=== PATIENT | male | born 1945 | race Caucasian/White ===

== ENCOUNTER 2017-01-15 09:35 | Outpatient (CLI) | payer MEDICARE | END 2017-01-15 09:36 | disposition home or self-care (01) | DX: I10 Essential (primary) hypertension (principal); E78.5 Hyperlipidemia, unspecified; D50.9 Iron deficiency anemia, unspecified; Z12.5 Encounter for screening for malignant neoplasm of prostate | CPT/HCPCS: 36415; 80053; 80061; 85025; G0103 ==

== ENCOUNTER 2018-10-16 09:18 | Outpatient (CLI) | payer MEDICARE, OTHER ==
[2018-10-16 09:51] LABS: BASOPHILS # (AUTO) 0.1 10^3/uL (0.0-0.1); BASOPHILS % (AUTO) 2.1 %; EOSINOPHILS # (AUTO) 0.4 10^3/uL (0.0-0.7); EOSINOPHILS % (AUTO) 6.2 %; HGB - HEMOGLOBIN 13.2 g/dL (14.0-18.0); LYMPHOCYTES # (AUTO) 1.1 10^3/uL (1.5-3.5); LYMPHOCYTES % (AUTO) 15.7 %; MEAN CORPUSCULAR HEMOGLOBIN 25.1 pg (27.0-31.0); MEAN CORPUSCULAR HGB CONC 32.8 g/dL (32.0-36.0); MEAN CORPUSCULAR VOLUME 76.5 fL (80.0-94.0); MEAN PLATELET VOLUME 8.1 fL (7.4-11.4); MONOCYTES # (AUTO) 0.7 10^3/uL (0.0-1.0); MONOCYTES % (AUTO) 9.4 %; NEUTROPHILS # (AUTO) 4.8 10^3/uL (1.5-6.6); NEUTROPHILS % (AUTO) 66.6 %; PLT - PLATELET COUNT 245 10^3/uL (130-450); RED BLOOD COUNT 5.25 10^6/uL (4.70-6.10); RED CELL DISTRIBUTION WIDTH 17.1 % (12.0-15.0); WHITE BLOOD COUNT 7.2 x10^3/uL (4.8-10.8)
[2018-10-16 10:19] LABS: ALBUMIN/GLOBULIN RATIO 1.4 (1.0-2.2); ALKALINE PHOSPHATASE 49 IU/L (42-121); ALT ALANINE AMINOTRANSFERASE 21 IU/L (10-60); AST ASPARTATE AMINOTRANSFERASE 27 IU/L (10-42); BILIRUBIN,TOTAL 0.6 mg/dL (0.2-1.0); BUN - BLOOD UREA NITROGEN 23 mg/dL (6-20); CARBON DIOXIDE - CO2 22 mmol/L (21-32); CHLORIDE 106 mmol/L (101-111); CHOL/HDL RATIO 5.4 (<5.0); CHOLESTEROL 200 mg/dL; CREATININE 1.6 mg/dL (0.6-1.2); GFR - MDRD 43 (>89); GLUCOSE 116 mg/dL (70-100); HDL CHOLESTEROL 37 mg/dL; LDL CHOLESTEROL,CALCULATED 140 mg/dL; LDL/HDL RATIO 3.8 (<3.6); SODIUM 138 mmol/L (135-145); TOTAL PROTEIN 6.9 g/dL (6.7-8.2); VLDL CHOLESTEROL 23 mg/dL
== END 2018-10-16 09:19 | disposition home or self-care (01) ==
LOC: LAB 09:18
PROVIDERS: ATTEND Family Medicine
DX: I10 Essential (primary) hypertension (principal); E78.5 Hyperlipidemia, unspecified; Z12.5 Encounter for screening for malignant neoplasm of prostate
CPT/HCPCS: 36415; 80053; 80061; 84443; 85025; G0103; 83721; 84153

== ENCOUNTER 2019-04-06 13:20 | Outpatient (CLI) | payer MEDICARE ==
[2019-04-06 19:55] LABS: BASOPHILS % (AUTO) 0.9 %; EOSINOPHILS # (AUTO) 0.3 10^3/uL (0.0-0.7); HGB - HEMOGLOBIN 13.1 g/dL (14.0-18.0); LYMPHOCYTES # (AUTO) 1.1 10^3/uL (1.5-3.5); LYMPHOCYTES % (AUTO) 19.9 %; MEAN CORPUSCULAR HEMOGLOBIN 24.9 pg (27.0-31.0); MEAN CORPUSCULAR HGB CONC 31.9 g/dL (32.0-36.0); MEAN CORPUSCULAR VOLUME 78.1 fL (80.0-94.0); MEAN PLATELET VOLUME 8.8 fL (7.4-11.4); MONOCYTES # (AUTO) 0.5 10^3/uL (0.0-1.0); MONOCYTES % (AUTO) 9.1 %; NEUTROPHILS # (AUTO) 3.5 10^3/uL (1.5-6.6); NEUTROPHILS % (AUTO) 65.1 %; PLT - PLATELET COUNT 222 10^3/uL (130-450); RED BLOOD COUNT 5.24 10^6/uL (4.70-6.10); RED CELL DISTRIBUTION WIDTH 17.6 % (12.0-15.0); WHITE BLOOD COUNT 5.3 x10^3/uL (4.8-10.8)
[2019-04-06 20:17] LABS: ALBUMIN 4.1 g/dL (3.2-5.5); ALBUMIN/GLOBULIN RATIO 1.4 (1.0-2.2); BILIRUBIN,TOTAL 0.7 mg/dL (0.2-1.0); CALCIUM 9.1 mg/dL (8.5-10.3); CREATININE 1.4 mg/dL (0.6-1.2)
== END 2019-04-06 13:21 | disposition home or self-care (01) ==
LOC: LAB.WCP 13:20
PROVIDERS: ATTEND Family Medicine
DX: I10 Essential (primary) hypertension (principal); E78.5 Hyperlipidemia, unspecified; D50.9 Iron deficiency anemia, unspecified
CPT/HCPCS: 36415; 80053; 82728; 83540; 84466; 85025

== ENCOUNTER 2019-12-18 13:23 | Outpatient (CLI) | payer MEDICARE ==
--- NOTE | 2019-12-18 15:45 | Ultrasound Report ---
Reason: SCROTAL MASS Procedure Date: 12/18/2019 Accession Number: [id number] / [id number] Procedure: US - Testicle CPT Code: Final Report FULL RESULT: EXAM: SCROTAL ULTRASOUND EXAM DATE: 12/18/2019 02:42 PM. CLINICAL HISTORY: Scrotal mass. COMPARISON: None. TECHNIQUE: Real-time scanning was performed with static images obtained. Color-flow images were utilized. FINDINGS: Right: Testis: 4.4 x 2.5 x 3.1 cm. Prominent dilation of rete testes with small intratesticular cysts. Epididymis: The epididymis has been replaced by tubular cystic conglomerate which contains debris, caliber up to 3.2 cm as visualized. Hydrocele: Yes. Varicocele: None. Left: Testis: 4.9 x 1.6 x 3.2 cm. A few tiny intratesticular cysts, otherwise normal parenchyma. Epididymis: Multicystic replacement of the epididymis, largest caliber at least 2.2 cm as seen, containing debris. Hydrocele: Yes. Varicocele: None. IMPRESSION: Bilateral cystic tubular dilation replacing the epididymides with internal low-level echoes suggestive of spermatocele with ectasia of rete testes on the right and bilateral surrounding hydrocele. Overall appearance favors tubular ectasia of the epididymis/spermatocele, cyst adenoma or cystadenocarcinoma of the rete testes would be less likely but not excluded as they are nonspecific on imaging. RADIA
== END 2019-12-18 13:24 | disposition home or self-care (01) ==
LOC: DI 13:23
PROVIDERS: ATTEND Urology
DX: N50.89 Other specified disorders of the male genital organs (principal); N44.2 Benign cyst of testis; N50.3 Cyst of epididymis; N43.3 Hydrocele, unspecified
CPT/HCPCS: 76870

== ENCOUNTER 2020-01-11 12:00 | Observation (INO) | payer MEDICARE ==
[2020-01-11 12:25] LABS: BASOPHILS # (AUTO) 0.1 10^3/uL (0.0-0.1); BASOPHILS % (AUTO) 1.2 %; EOSINOPHILS # (AUTO) 0.2 10^3/uL (0.0-0.7); EOSINOPHILS % (AUTO) 3.7 %; HGB - HEMOGLOBIN 13.4 g/dL (14.0-18.0); MEAN CORPUSCULAR HEMOGLOBIN 26.6 pg (27.0-31.0); MEAN CORPUSCULAR HGB CONC 30.8 g/dL (32.0-36.0); MEAN CORPUSCULAR VOLUME 86.3 fL (80.0-94.0); MEAN PLATELET VOLUME 10.7 fL (7.4-11.4); MONOCYTES # (AUTO) 0.6 10^3/uL (0.0-1.0); NEUTROPHILS # (AUTO) 3.8 10^3/uL (1.5-6.6); NEUTROPHILS % (AUTO) 66.9 %; PLT - PLATELET COUNT 209 10^3/uL (130-450); RED BLOOD COUNT 5.04 10^6/uL (4.70-6.10); RED CELL DISTRIBUTION WIDTH 15.9 % (12.0-15.0); WHITE BLOOD COUNT 5.7 x10^3/uL (4.8-10.8)
[2020-01-11 12:39] LABS: ALBUMIN/GLOBULIN RATIO 1.5 (1.0-2.2); BILIRUBIN,TOTAL 0.6 mg/dL (0.2-1.0); CALCIUM 9.2 mg/dL (8.5-10.3); CREATININE 1.4 mg/dL (0.6-1.2); TOTAL PROTEIN 6.7 g/dL (6.7-8.2)
--- NOTE | 2020-01-11 12:42 | XRAY Report ---
Reason: Chest pain Procedure Date: 01/11/2020 Accession Number: [id number] / [id number] Procedure: XR - Chest 1 View X-Ray CPT Code: 57454 Final Report FULL RESULT: EXAM: CHEST RADIOGRAPHY EXAM DATE: 01/11/2020 12:18 PM. CLINICAL HISTORY: Chest pain. COMPARISON: None. TECHNIQUE: 1 view. FINDINGS: Lungs/Pleura: No focal opacities evident. No pleural effusion. No pneumothorax. Mediastinum: Within exam limitations, the cardiomediastinal contour is normal. Other: Small hiatal hernia is suggested. IMPRESSION: No lung consolidations identified. Small hiatal hernia is suggested. RADIA
--- NOTE | 2020-01-11 12:55 | CT Report ---
Reason: confusion Procedure Date: 01/11/2020 Accession Number: [id number] / [id number] Procedure: CT - HEAD WO CPT Code: Final Report FULL RESULT: EXAM: CT HEAD EXAM DATE: 01/11/2020 12:30 PM. CLINICAL HISTORY: Confusion. COMPARISON: None. TECHNIQUE: Multiaxial CT images were obtained from the foramen magnum to the vertex. Reformats: Sagittal and coronal. IV contrast: None. In accordance with CT protocol optimization, one or more of the following dose reduction techniques were utilized for this exam: automated exposure control, adjustment of mA and/or KV based on patient size, or use of iterative reconstructive technique. FINDINGS: Parenchyma: No intraparenchymal hemorrhage. No evidence of mass, midline shift, or CT findings of infarction. Lemus-white differentiation is distinct. Extraaxial Spaces: Normal for age. No subdural or epidural collections identified. Ventricles: Normal in size and position. Sinuses and Orbits: Imaged paranasal sinuses, orbits, and mastoids show no significant abnormality. Bones: No evidence of fracture or calvarial defect. Other: None. IMPRESSION: No acute intracranial hemorrhage or mass effect detected. RADIA
--- NOTE | 2020-01-11 14:53 | ED Physician Documentation ---
PD HPI FOCAL NEURO - Stated complaint Stated Complaint: CONFUSION - Chief complaint Chief Complaint: Neuro - History obtained from History obtained from: Patient, Family - History of Present Illness Timing - onset: How many hours ago (3) Timing - duration: Hours (3) Timing - details: Abrupt onset Severity of deficit: Mild Weakness: No: Face, Arm, Hand, Leg, Foot, Right, Left Numbness: No: Face, Arm, Hand, Leg, Foot, Right, Left Associated symptoms: No: Headache, Nausea / vomiting, Seizure, Syncope, Fall, Head injury, Chest pain, Neck pain, Back pain, Fever Contributing factors: negative: Anticoagulated, Vascular dz, Atrial fibrillation, Prosthetic heart valve Baseline status: positive: A&OX3, ambulatory, indep Recently seen: Not recently seen - Additional information Additional information: 74-year-old male with approximately 30 minutes of a aphasia today. Had difficulty getting the words out. He states that he could understand the words he was reading in the words being spoken to him but was having trouble getting the words out. Has never had similar symptoms. No history of cardiac disease. No history of stroke. gave aspirin prior to arrival. Currently back at his normal baseline. Review of Systems Ten Systems: 10 systems reviewed and negative Constitutional: denies: Fever, Chills Ears: denies: Ear pain Nose: denies: Rhinorrhea / runny nose, Congestion Throat: denies: Sore throat Cardiac: denies: Chest pain / pressure Respiratory: denies: Cough GI: denies: Abdominal Pain, Nausea, Vomiting, Diarrhea : denies: Dysuria Skin: denies: Rash Musculoskeletal: denies: Neck pain, Back pain Neurologic: denies: Headache PD PAST MEDICAL HISTORY - Past Medical History Past Medical History: Yes Cardiovascular: Hypertension, High cholesterol Respiratory: None Endocrine/Autoimmune: None GI: GERD, Hiatal hernia, Colon polyps : Benign prostate hypertrophy, Retention, Indwelling catheter HEENT: None Psych: None Musculoskeletal: Osteoarthritis Derm: Eczema - Past Surgical History Past Surgical History: Yes General: Colonoscopy, EGD, Other - Present Medications Home Medications: Ambulatory Orders Medication Instructions Recorded Confirmed Aspirin [Aspirin EC] 325 mg PO PRN 10/22/13 10/22/13 Atorvastatin Calcium 10 mg PO DAILY 10/22/13 10/22/13 Ibuprofen [Advil] 200 mg PO PRN 10/22/13 10/22/13 Lisinopril/Hydrochlorothiazide 1 each PO QAM 10/22/13 10/22/13 [Lisinopril-Hctz 10-12.5 mg Tab] Omeprazole [Prilosec] 40 mg PO QAM 10/22/13 10/22/13 - Allergies Allergies/Adverse Reactions: Allergies Allergy/AdvReac Type Severity Reaction Status Date / Time latex Allergy Rash Verified 10/22/13 14:17 - Social History Does the pt smoke?: No Smoking Status: Never smoker Does the pt drink ETOH?: No Does the pt have substance abuse?: No - Immunizations Immunizations: TDAP >10years/unknown PD ED PE NORMAL - Vitals Vital signs reviewed: Yes - General General: Alert and oriented X 3, No acute distress, Well developed/nourished - HEENT HEENT: Atraumatic, PERRL, EOMI, Ears normal, Moist mucous membranes, Pharynx benign - Neck Neck: Supple, no meningeal sign - Cardiac Cardiac: RRR, No murmur, Strong equal pulses - Respiratory Respiratory: No respiratory distress, Clear bilaterally - Abdomen Abdomen: Soft, Non tender, Non distended - Derm Derm: Warm and dry, No rash - Extremities Extremities: No edema, No calf tenderness / cord - Neuro Neuro: Alert and oriented X 3, filer helper 2-12 intact, No motor deficit, No sensory deficit, Normal speech Eye Opening: Spontaneous Motor: Obeys Commands Verbal: Oriented GCS Score: 15 - Psych Psych: Normal mood, Normal affect NIHSS - Time Time: 14:40 - Level of Consciousness Level of consciousness: (0) Alert, Keenly responsive LOC Questions: (0) Answers both Q's correct LOC Commands: (0) Performs both correctly - Gaze Best Gaze: (0) Normal - Visual Visual: (0) No loss - Facial Palsy Facial Palsy: (0) Normal, symmetrical movement - Motor Arms (both separate) Motor Arm (right): (0) No drift Motor Arm (left): (0) No drift - Motor Legs (both separate) Motor Leg (right): (0) No drift Motor Leg (left): (0) No drift - Limb Ataxia Limb Ataxia: (0) Absent - Sensory Sensory: (0) Normal - Best Language Best Language: (0) No aphasia - Dysarthria Dysarthria: (0) Normal - Extinction and Inattention (formally neg Extinction and inattention: (0) No abnormality - Total Score/Results Total Score/Result: 0 Results - Vitals Vitals: Vital Signs - 24 hr 01/11/20 01/11/20 12:03 14:31 Temperature 36.5 C Heart Rate 83 79 Respiratory 18 16 Rate Blood Pressure 174/92 H 156/93 H O2 Saturation 100 100 Oxygen O2 Source Room air - EKG (time done) 1228 Rate: Rate (enter#) (84) Rhythm: NSR [place]: Normal Intervals: Normal VA QRS: Normal Ischemia: Non specific changes - Labs Labs: Laboratory Tests 01/11/20 01/11/20 12:19 12:19 WBC 5.7 RBC 5.04 Hgb 13.4 L Hct 43.5 MCV 86.3 MCH 26.6 L MCHC 30.8 L RDW 15.9 H Plt Count 209 MPV 10.7 Neut # (Auto) 3.8 Lymph # (Auto) 1.0 L [place] # (Auto) 0.6 Eos # (Auto) 0.2 Baso # (Auto) 0.1 Absolute Nucleated RBC 0.00 Nucleated RBC % 0.0 Sodium 140 Potassium 4.3 Chloride 107 Carbon Dioxide 26 Anion Gap 7.0 BUN 22 H Creatinine 1.4 H Estimated GFR (MDRD) 49 L Glucose 109 H Calcium 9.2 Total Bilirubin 0.6 AST 24 ALT 15 Alkaline Phosphatase 38 L Total Protein 6.7 Albumin 4.0 Globulin 2.7 Albumin/Globulin Ratio 1.5 Lipase 38 - Rads (name of study) CT head Radiology: Prelim report reviewed, EMP read contemporaneously, See rad report (No acute intracranial abnormality) cxr Radiology: Prelim report reviewed, EMP read contemporaneously, See rad report (No acute abnormality) PD MEDICAL DECISION MAKING - ED course Complexity details: reviewed results, re-evaluated patient, considered differential, d/w patient, d/w family ED course: 74-year-old male presents to the emergency department with what appears to be a TIA. No history of cardiac disease or neurological disease. Took aspirin prior to arrival. Discussed inpatient versus outpatient work-up. He elects to stay in the hospital and have his work-up performed more expeditiously. ABCD 2 score is 4. This puts him at moderate risk. Discussed the case with Dr. Key, hospitalist who accepts This document was made in part using voice recognition software. While efforts are made to proofread this document, sound alike and grammatical errors may occur. Departure - Departure Disposition: ED Place in Observation Clinical Impression: TIA (transient ischemic attack) Condition: Stable
[2020-01-11] MEDS ORDERED: ONDANSETRON 4 MG/2 ML VIAL IVP PRN (14:55)
[2020-01-11] MEDS ORDERED: ACETAMINOPHEN 325 MG TABLET PO PRN (14:55)
[2020-01-11] MEDS ORDERED: oxyCODONE 5 MG TABLET PO PRN (14:55)
[2020-01-11] MEDS ORDERED: ONDANSETRON ODT 4 MG TABLET TL PRN (14:55)
[2020-01-11] MEDS ORDERED: SODIUM CHLORIDE FLUSH 0.9% 10 ML SYRINGE IVP PRN (14:55)
[2020-01-11 15:07] LABS: BILIRUBIN,URINE NEGATIVE (NEGATIVE); GLUCOSE, URINE (UA) NEGATIVE (NEGATIVE); KETONES,URINE (UA) NEGATIVE (NEGATIVE); LEUKOCYTE ESTERASE, URINE NEGATIVE (NEGATIVE); NITRITE,URINE NEGATIVE (NEGATIVE); OCCULT BLOOD,URINE NEGATIVE (NEGATIVE); PH,URINE 5.5 PH (5.0-7.5); PROTEIN,URINE NEGATIVE (NEGATIVE); UROBILINOGEN,URINE 0.2 (NORMAL) E.U./dL (NORMAL)
[2020-01-11 15:08] LABS: CLARITY,URINE CLEAR (CLEAR)
[2020-01-11] MEDS ORDERED: IOVERSOL 320 100 ML VIAL IVP ONE ×2 (15:18→15:36)
--- NOTE | 2020-01-11 15:22 | HISTORY & PHYSICAL EXAMINATION ---
Chief Complaint - Chief Complaint Chief Complaint: 30 minutes of aphasia History of Present Illness - Admitted From Admitted From:: Home/ER - History Obtained From Records Reviewed: Nancy Birmingham History obtained from: patient and Dr. Reyes Exam Limitations: none - History of Present Illness HPI Comment/Other: 78-year-old white male whose stroke risk factors include male sex, hypertension, hyperlipidemia. 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 He has no history of atrial fibrillation or valvular heart disease. He carries a [place] risk score of 17%. He had a treadmill test on 05/2009 that was negative. He now presents with 30 minutes of inability to speak. He states that he could read, understand what people were saying to him, but could not form the words to speak back. In the emergency room he was mildly hypertensive at 174/92. Afebrile, normal sinus rhythm on EKG. Negative neurological examination and that there were no focal deficits. Cranial nerves were normal. CT of the head was negative. He is now placed in observation to complete work-up for a TIA. History - Past Medical History Cardiovascular: reports: Hypertension, High cholesterol, Other (Stress test done for screening September 06, 2009 showed him to exercise for 9 minutes, 10.2 METS.) Respiratory: reports: None Endocrine/Autoimmune: reports: None GI: reports: GERD (Food has occasionally stuck for years. No change in that. Uses H2 blockers. Referred to MD Negro at @[facility] 07/2011 and didn't return calls to schedule EGD. Finally saw Brian Milner 03/2013 and had erosive esophagitis, distal esophageal narrowing along with reflux of gastric contents. Path neg of antrum, GE junction. Esophagus had reactive squamous epithelium with adjacent ulcer and fibrinopuruletn exudate. Colonoscopy polypectomy with no adenoma or dysplasia. ), Hiatal hernia, Colon polyps, Other (Small antral ventral hernia) : reports: Benign prostate hypertrophy, Retention, Renal insuffiency (Due to high back flows from retention. Recommended 5x/day cath and decreased oral intake 09/2013. 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 Renal US 07/2015 w large postvoid residual, large bladder divertic, no hydro. ), Indwelling catheter (After complications of 2003 laser surgery on his prostate: bladder neck contracture. then TUR bladder neck contracture x2 at [facility] 2008. then one 2015 w MD Jeramie. Saw [facility] 2019 and got cystoscopy and flomax. ), Other (chronic bilateral scrotal swelling) HEENT: reports: Other (Seasonal allergic rhinitis) Psych: reports: None Musculoskeletal: reports: Osteoarthritis Derm: reports: Eczema MRSA Hx?: No - Past Surgical History General: reports: Colonoscopy (2000 and 2012), EGD (Approximate 1994 and 2012), Other (Bilateral inguinal hernia repair, Umbilical hernia repair) - Family & Social History Family History Comment/Other: Mom at age 92. She had struggled with melano ma for 15 years before she finally succumbed to metastatic melanoma. She did have hypertension. Dad at age 87. He also succumbed to skin cancer that metastasized to his brain. His brother a few years ago. He had problems with smoking and drinking and of a heart attack. He has no children. Living arrangement: At home Living Situation: With spouse/s.o. Social History Notes: To his fourth . 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 He works for [employer]. Never smoked. No history of alcohol abuse. No history of recreational substance abuse. Lives in his own home with his .He came to live on [address] about 11 years ago. He does come and gone and visited friends and relatives in the area. When he retired from [employer] in [place], he came here to live permanently. He has been to his fourth for about 10 years. He is a [employer] and cannot get blood products. - Substance History Use: Uses substance without health or social issues: NONE Abuse: Recurrent use of substance despite neg consequences: NONE Dependence: Experiences withdrawal or developed tolerances: NONE - POLST Patient has POLST: No POLST Status: Full Code Meds/Allgy - Home Medications Home Medications: Ambulatory Orders Medication Instructions Recorded Confirmed Aspirin [Aspirin EC] 325 mg PO DAILY PRN 10/22/13 01/11/20 Ibuprofen [Advil] 200 mg PO PRN PRN 10/22/13 01/11/20 Omeprazole [Prilosec] 40 mg PO QAM 10/22/13 01/11/20 Lisinopril [Zestril] 20 mg PO DAILY 01/11/20 01/11/20 Pravastatin [Pravachol] 10 mg PO DAILY 01/11/20 01/11/20 Tamsulosin [Flomax] 0.4 mg PO DAILY 01/11/20 01/11/20 - Allergies Allergies/Adverse Reactions: Allergies Allergy/AdvReac Type Severity Reaction Status Date / Time latex Allergy Rash Verified 10/22/13 14:17 Review of Systems - Constitutional Constitutional: denies: Fatigue, Fever, Chills, Malaise - Eyes Eyes: reports: Corrective lenses. denies: Irritation, Amaurosis, Vision loss, Dipolpia - Ears, Nose & Throat Ears, Nose & Throat: denies: Hearing loss, Nasal pain, Nasal discharge, Sore throat, Hoarseness - Cardiovascular Cariovascular: denies: Irregular heart rate, Palpitations, Chest pain, Edema, Exertional dyspnea, Decr. exercise tolerance - Respiratory Respiratory: denies: Cough, Sputum production, Wheezing, Snoring - Gastrointestinal Gastrointestinal: reports: Reflux/heartburn (Ever since he has been put on omeprazole for reflux esophagitis, he is done very well. Now he gets a little bit of it and he take some Tums and it is all gone.). denies: Abdominal pain, Abdominal distention, Vomiting, Bile emesis - Genitourinary Genitourinary: reports: Dysuria, Frequency, Urgency, Incontinence, Nocturia, Sexual dysfunction, Other (This is his main pain of his existence. With the most recent TUR of bladder neck contracture done by Dr. Renteria, he is done much better. Flomax is working. Has not had to self catheterize more than once a months now.). 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 Laid on a kitchen floor for hours at a time rewiring the cabinetry. That is why his back and muscles hurt.) - Integumentary Integumentary: reports: Rash (Eczema off and on.), Other (Frequent senile purpura on a patient who takes ibuprofen almost on a daily basis) - Neurological Neurological: denies: General weakness, Focal weakness, Headache, Dizziness, Memory problems, Pre-existing deficit, Abnormal gait, Seizures, Incoordination - Psychiatric Psychiatric: denies: Depression, Anxiety, Suicidal, Hallucinations - Endocrine Endocrine: denies: Polyuria, Polydypsia - Hematologic/Lymphatic Hematologic/Lymphatic: reports: Anemia (Chronic iron deficiency in the past.), Bruising Prior Level of Functionality: Completely independent with activities of daily living and daily life. He does home repairs, house repairs, yard work, pays his bills, drives. He and his both deny that he has any noticeable cognitive deficits of aging. Exam - Vital Signs Reviewed Vital Signs: Yes Vital Signs: Vital Signs x48h Temp Pulse Resp BP Pulse Ox 01/11/20 14:31 79 16 156/93 H 100 01/11/20 12:03 36.5 C 83 18 174/92 H 100 - Physical Exam General Appearance: positive: No acute distress, Alert, Other (Thin, tall white male, at the bedside, wearing glasses) Eyes Bilateral: positive: PERRL, EOMI ENT: positive: Pharynx nml, No signs of dehydration. negative: Oral lesions Neck: positive: No JVD. negative: Stiff neck, Carotid bruit Respiratory: positive: Chest non-tender. negative: Wheezes, Rales, Rhonchi Cardiovascular: positive: Regular rate & rhythm. negative: Systolic murmur, Gallop/S4, Friction rub Peripheral Pulses: positive: 1+ Abdomen: positive: Non-tender, No organomegaly, Nml bowel sounds, No distention Skin: positive: Warm, Dry, Other (Multiple senile purpura on his forearms, ernesto sum of his hands.) Extremities: positive: Non-tender, Full ROM, No pedal edema Neurologic/Psychiatric: positive: Oriented x3, CN's nml (2-12), Motor nml, Sensation nml Reflexes: Bicep (R): 1+, Bicep (L): 1+, Knee (R): 1+, Knee (L): 1+, Ankle (R): 0 (Unable to obtain), Ankle (L): 0 (Unable to obtain) Babinski Reflex: Right: Down, Left: Down Conclusion/Plan - Problem List (1) TIA (transient ischemic attack) Conclusion/Plan: This is a gentleman who is over 59, is hypertensive, and had 30 minutes of expressive aphasia. ABCD 2 score is 4 which makes his 2-day stroke risk 4.1%, 7-day stroke risk 5.9%, and 90-day stroke risk 9.8%. Moderate risk. This also stratify this patient to place him in observation. Anywhere from 12 to 48 hours. Plan: CT angiogram of head and neck MRI Echocardiogram Aspirin given at home before he came here and will be continued daily Statin is already on board with pravastatin. Atorvastatin gives him leg cramps. I spoke to on[facility]call neurology at [facility]. All of his work-up is already been completed toward the end of this dictation. I was curious if I could be able to send him home. She would want to things on him done within the next week. She would want an echocardiogram and 24 hours of telemetry monitoring. That cannot be done in the outpatient setting expeditiously. As such the patient will stay overnight and be discharged tomorrow after echocardiogram. (2) HTN (hypertension) Conclusion/Plan: I have explained to him that part of reducing your risk factors for stroke and heart attack is to make your blood pressure "perfect". Aim for below 130/90. On admission he was 174/92. On MedSurg he is 160/99. He is on lisinopril but has chronic kidney disease stage III. Plan: I am not to change his blood pressure medicine at this point in time but I did recommend that he talk to his primary care provider about changing to a [id number] calcium channel chantell, or another medication to control his blood pressure without affecting chronic kidney disease. Qualifiers: Hypertension type: essential hypertension Qualified Code(s): I10 - Essential (primary) hypertension (3) Hyperlipidemia Conclusion/Plan: Fasting lipid panel in the morning. Increase pravastatin to 2 tablets a day. Qualifiers: Hyperlipidemia type: pure hypercholesterolemia Qualified Code(s): E78.00 - Pure hypercholesterolemia, unspecified; E78.0 - Pure hypercholesterolemia (4) CKD (chronic kidney disease) Conclusion/Plan: This is a diagnosis that is been present in his chart for several years. As I went over his problem list with him to update him on my treatment plan, he is surprised when I say chronic kidney disease. I have explained to him that this is actually relatively common level across the [place] for patients to take nonsteroidals, have retrograde urine flow such as himself. But I asked him to make sure that he always ask about nephrotoxic drugs, or that his medications be adjusted for renal disease. Plan: Again, consider changing lisinopril to a non-dihydropyridine calcium channel chantell, or another blood pressure medication. At this time no acute changes when all blood work looked at. Qualifiers: Chronic kidney disease stage: stage 3 (moderate) Qualified Code(s): N18.3 - Chronic kidney disease, stage 3 (moderate) (5) CKD (chronic kidney disease) stage 3, GFR 30-59 ml/min Conclusion/Plan: Noted. I have explained to him that taking ibuprofen on a daily basis, which she has been, is probably contraindicated. Try Tylenol less than 3000 mg a day. (6) Full code status Conclusion/Plan: He states that if he were to have sudden cardiac cessation or stop breathing at this moment in time, he would want to be fully resuscitated. He wants everything done. The only time he would hesitate about being resuscitated would have to do with what his quality of life was at that point in time. Down the road, if he is significantly disabled and has a low quality of life as he defin es it, he would not want to be resuscitated. But at this time he and his want everything done. He does not ever want to be on life support. 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 If he were to be resuscitated, intubated, on life support, he and she have already discussed when she would ask the medical system to have him taken off life support. - Lab Results Lab results reviewed: Yes Fish Bones: 01/11/20 12:19 01/11/20 12:19 - Diagnostic Imaging Results Diagnostic Imaging Results: positive: Final report reviewed Diagnostic Imaging Results Comments: CHEST RADIOGRAPHY EXAM DATE: 01/11/2020 12:18 PM. CLINICAL HISTORY: Chest pain. COMPARISON: None. TECHNIQUE: 1 view. FINDINGS: Lungs/Pleura: No focal opacities evident. No pleural effusion. No pneumothorax. Mediastinum: Within exam limitations, the cardiomediastinal contour is normal. Other: Small hiatal hernia is suggested. IMPRESSION: No lung consolidations identified. Small hiatal hernia is suggested. CT SCAN OF THE HEAD WITH CONTRAST. EXAM DATE: 01/11/2020 03:33 PM CLINICAL HISTORY: Sudden onset aphasia. COMPARISON: HEAD W/O 01/11/2020 12:34 PM. TECHNIQUE: - CT Scan Head: Using a multidetector scanner, axial images were acquired from the foramen magnum to the skull vertex following IV contrast administration. - CT Angiogram: Using a multidetector scanner, high-resolution axial images were acquired from the skull base through vertex following rapid infusion of intravenous contrast. Reformats: Multiplanar MIP reformats were reconstructed. NASCET criteria used for stenosis measurement. IV Contrast: 80 cc Optiray 320. In accordance with CT protocol optimization, one or more of the following dose reduction techniques were utilized for this exam: automated exposure control, adjustment of mA and/or KV based on patient size, or use of iterative reconstructive technique. FINDINGS: CT HEAD: No enhancing mass is identified in the brain parenchyma. CT ANGIOGRAM HEAD: No high-grade stenosis, filling defect, or occlusion is present in the proximal aspect of the major intracranial vessels. Mild narrowing is seen in each RIBBON HAND. No saccular outpouching of contrast is present. Expected enhancement is seen in the major dural venous sinuses. Atherosclerotic plaque is seen in the cavernous ICA bilaterally without significant narrowing present. Other: No masses seen in the visualized nasopharynx. No mass is present in either orbit. IMPRESSION: CT Head: 1. No abnormal enhancement. CTA Head: 1. No high-grade stenosis, filling defect, or occlusion is present in the proximal aspect of the major intracranial vessels 2. Mild narrowing is seen in each RIBBON HAND. 3. No saccular aneurysm. - EKG Results EKG Interpreted Independently: No EKG Comparison: Other EKG Findings: NSR. No acute changes. Core Measures - Anticipated LOS I expect patient to be DC'd or transferred within 96 hours.: Yes - DVT/VTE - Prophylaxis VTE/DVT Device ordered at admit?: Yes
--- NOTE | 2020-01-11 16:21 | CT Report ---
Reason: sudden aphasia Procedure Date: 01/11/2020 Accession Number: [id number] / [id number] Procedure: CT - ANGIO HEAD W/WO CPT Code: Final Report FULL RESULT: EXAM: CT ANGIOGRAM HEAD. CT SCAN OF THE HEAD WITH CONTRAST. EXAM DATE: 01/11/2020 03:33 PM CLINICAL HISTORY: Sudden onset aphasia. COMPARISON: HEAD W/O 01/11/2020 12:34 PM. TECHNIQUE: - CT Scan Head: Using a multidetector scanner, axial images were acquired from the foramen magnum to the skull vertex following IV contrast administration. - CT Angiogram: Using a multidetector scanner, high-resolution axial images were acquired from the skull base through vertex following rapid infusion of intravenous contrast. Reformats: Multiplanar MIP reformats were reconstructed. NASCET criteria used for stenosis measurement. IV Contrast: 80 cc Optiray 320. In accordance with CT protocol optimization, one or more of the following dose reduction techniques were utilized for this exam: automated exposure control, adjustment of mA and/or KV based on patient size, or use of iterative reconstructive technique. FINDINGS: CT HEAD: No enhancing mass is identified in the brain parenchyma. CT ANGIOGRAM HEAD: No high-grade stenosis, filling defect, or occlusion is present in the proximal aspect of the major intracranial vessels. Mild narrowing is seen in each TACTICAL [employer]Y MANAGER. No saccular outpouching of contrast is present. Expected enhancement is seen in the major dural venous sinuses. Atherosclerotic plaque is seen in the cavernous ICA bilaterally without significant narrowing present. Other: No masses seen in the visualized nasopharynx. No mass is present in either orbit. IMPRESSION: CT Head: 1. No abnormal enhancement. CTA Head: 1. No high-grade stenosis, filling defect, or occlusion is present in the proximal aspect of the major intracranial vessels 2. Mild narrowing is seen in each [employer] MANAGER. 3. No saccular aneurysm. RADIA
--- NOTE | 2020-01-11 17:34 | MRI Report ---
Reason: sudden aphasia Procedure Date: 01/11/2020 Accession Number: [id number] / [id number] Procedure: MRI - Brain W/O CPT Code: Final Report FULL RESULT: EXAM: MRI BRAIN WITHOUT CONTRAST EXAM DATE: 01/11/2020 04:22 PM. CLINICAL HISTORY: Sudden aphasia. COMPARISON: CT angiogram head and neck and CT head from today. TECHNIQUE: Multiplanar, multisequence T1-weighted and fluid-sensitive MR sequences of the brain were performed. Sequences optimized for routine evaluation. Other: None. IV Contrast: None. FINDINGS: No abnormal restricted diffusion signal or magnetic susceptibility is present in the brain parenchyma. No cerebellar tonsillar ectopia is present. Small FLAIR hyperintensities are seen in the cerebral hemisphere white matter bilaterally. Slightly more confluent FLAIR hyperintense signal is seen in the periventricular white matter adjacent to the right lateral ventricle body. No abnormal T2 or FLAIR hyperintense signal is seen in the infratentorial brain. There is an expected flow void in the major intracranial vessels at the skull base and in the superior sagittal sinus. No mass is present in either orbit or in either Meckel's cave. Scattered paranasal sinus mucosal thickening is seen most evident in the maxillary sinus bilaterally and ethmoid air cells bilaterally. Retention cyst/polyp formation is seen in the right maxillary sinus. No abnormal T1 shortening is present in the brain parenchyma. IMPRESSION: 1. No acute CVA is present on diffusion-weighted images. 2. No intracranial mass. 3. Small vessel ischemic change is present in the cerebral hemisphere white matter bilaterally. RADIA
--- NOTE | 2020-01-11 17:34 | CT Report ---
Reason: sudden aphasia Procedure Date: 01/11/2020 Accession Number: [id number] / [id number] Procedure: CT - ANGIO NECK W CPT Code: Final Report FULL RESULT: EXAM: CT ANGIOGRAM NECK EXAM DATE: 01/11/2020 03:33 PM. CLINICAL HISTORY: Sudden onset aphasia. COMPARISON: HEAD W/O 01/11/2020 12:34 PM. TECHNIQUE: Routine axial helical imaging was performed from the skull base through the aortic arch. Reconstructions: Routine multiplanar 3D MIP reconstructions. IV Contrast: 80 mL OPTIRAY 320. Evaluation of arterial stenosis is based on a NASCET method of measurement. In accordance with CT protocol optimization, one or more of the following dose reduction techniques were utilized for this exam: automated exposure control, adjustment of mA and/or KV based on patient size, or use of iterative reconstructive technique. FINDINGS: Right Carotid: Minimal atherosclerotic plaque is seen at the origin of the cervical ICA. No significant narrowing is seen in the cervical ICA. Left Carotid: Minimal atherosclerotic plaque is seen at the proximal cervical ICA. No significant narrowing is seen in the cervical ICA Vertebrals: No significant narrowing is present in the cervical right vertebral artery. Mild narrowing is present at the origin of the left vertebral artery. The right vertebral artery is dominant. Great vessel origins: Atherosclerotic plaque is seen involving the transverse thoracic aorta. No significant great vessel origins stenosis is present. Intracranial Circulation: The reader is referred to the patient's CT angiogram head examination performed in conjunction with this study and dictated under separate cover. Other: Degenerative disk disease and osteophyte formation are seen at scattered levels in the spine. This is greatest in the cervical spine where it is moderate to severe at C5-C6 and C6-C7. No suspicious spiculated mass is present in either lung apex. Retention cyst/polyp formation is seen in each maxillary sinus. There is bilateral ethmoid air cell mucosal thickening There is an ill-defined enhancing nodule posteriorly in the left submandibular gland measuring 8 mm in size. No discrete mass is present in the right submandibular gland or in either parotid gland. Thyroid gland is not enlarged. There is a peripherally calcified nodule in the left thyroid lobe. This measures up to 9 mm in size. There is a noncalcified thyroid nodule measuring 7 mm posterior in the right thyroid lobe. No bulky lymphadenopathy is seen in the visualized upper mediastinum or along either internal jugular chain. IMPRESSION: 1. No hemodynamically significant stenosis is present in either cervical ICA or in either cervical vertebral artery. 2. Mild narrowing is seen at the origin of the left vertebral artery. The right vertebral artery is dominant. 3. An ill-defined enhancing nodule is seen in the submandibular gland on the left. A primary submandibular neoplasm is not excluded. Dedicated soft tissue neck MRI or soft tissue neck CT would be of value to better characterize this finding. 4. Retention cyst/polyp formation is present in each maxillary sinus and there is bilateral ethmoid air cell mucosal thickening. 5. Thyroid nodules are seen bilaterally. CT cannot distinguish benign from malignant thyroid disease. RADIA
--- NOTE | 2020-01-11 17:38 | PHARMACY PROGRESS NOTE ---
- Best Possible Medication History Admit Date and Time: 01/11/20 1455 Processed by: Pharmacy Medication History completed: Yes Patient Interview: Completed Secondary Source(s): Prescription bottles, Spouse/Significant other, Physician records As the person ultimately responsible for medication therapy, providers are able to order a medication from an existing home medication list in [facility] via the "Reconcile Routine" prior to Confirmation of that medication by support associate. Such practice is discouraged except when the physician, in their clinical judgment, deems that a medical need exists for a medication without regard to previous use.
[2020-01-11] MEDS: PANTOPRAZOLE 40 MG TABLET PO SCH (17:53)
[2020-01-11] MEDS: SODIUM CHLORIDE FLUSH 0.9% 10 ML SYRINGE IVP SCH (18:03)
[2020-01-11] MEDS ORDERED: ATORVASTATIN 40 MG TABLET PO SCH (21:00)
[2020-01-11] MEDS: amLODIPine 5 MG TABLET PO SCH (21:00)
[2020-01-12] MEDS: SODIUM CHLORIDE FLUSH 0.9% 10 ML SYRINGE IVP SCH ×2 (00:07→09:26)
[2020-01-12] MEDS ORDERED: hydrALAZINE INJ 20 MG/ML VIAL IVP PRN (00:10)
[2020-01-12 06:10] LABS: CHOL/HDL RATIO 3.7 (<5.0); CHOLESTEROL 187 mg/dL; HDL CHOLESTEROL 50 mg/dL; LDL CHOLESTEROL,CALCULATED 117 mg/dL; LDL/HDL RATIO 2.3 (<3.6); VLDL CHOLESTEROL 20 mg/dL
[2020-01-12] MEDS: PANTOPRAZOLE 40 MG TABLET PO SCH (06:28)
[2020-01-12 08:12] LABS: BASOPHILS # (AUTO) 0.1 10^3/uL (0.0-0.1); BASOPHILS % (AUTO) 0.7 %; EOSINOPHILS # (AUTO) 0.2 10^3/uL (0.0-0.7); HGB - HEMOGLOBIN 13.2 g/dL (14.0-18.0); LYMPHOCYTES # (AUTO) 1.2 10^3/uL (1.5-3.5); LYMPHOCYTES % (AUTO) 17.3 %; MEAN CORPUSCULAR HEMOGLOBIN 25.7 pg (27.0-31.0); MEAN CORPUSCULAR HGB CONC 30.8 g/dL (32.0-36.0); MEAN CORPUSCULAR VOLUME 83.5 fL (80.0-94.0); MONOCYTES # (AUTO) 0.7 10^3/uL (0.0-1.0); NEUTROPHILS # (AUTO) 4.9 10^3/uL (1.5-6.6); NEUTROPHILS % (AUTO) 68.7 %; PLT - PLATELET COUNT 212 10^3/uL (130-450); RED BLOOD COUNT 5.14 10^6/uL (4.70-6.10); RED CELL DISTRIBUTION WIDTH 15.9 % (12.0-15.0); WHITE BLOOD COUNT 7.1 x10^3/uL (4.8-10.8)
[2020-01-12 08:13] LABS: CALCIUM 8.7 mg/dL (8.5-10.3); CREATININE 1.1 mg/dL (0.6-1.2)
[2020-01-12] MEDS ORDERED: ASPIRIN CHEW 81 MG TABLET PO SCH (09:00)
[2020-01-12] MEDS ORDERED: lisinopriL 5 MG TABLET PO SCH ×2 (09:00)
[2020-01-12] MEDS: amLODIPine 5 MG TABLET PO SCH (09:26)
--- NOTE | 2020-01-12 11:40 | Ultrasound Report ---
Reason: thyroid nodules Procedure Date: 01/12/2020 Accession Number: [id number] / [id number] Procedure: US - Head or Neck Soft Tissue CPT Code: Final Report FULL RESULT: EXAM: THYROID ULTRASOUND EXAM DATE: 01/12/2020 10:02 AM. CLINICAL HISTORY: Thyroid nodules. COMPARISON: NECK ANGIO 01/11/2020 3:29 PM. TECHNIQUE: Real time sonographic imaging of the thyroid was performed by the critical care unit nurse. Multiple entry level account representative static images were saved for review. FINDINGS: THYROID GLAND: Right Lobe: 5.6 x 2.0 x 2.2 cm, volume 12.9 cc. Heterogeneous background echotexture, with numerous tiny nodules. Right Lobe Nodules: Upper pole circumscribed, solid uniform isoechoic nodule measuring 0.8 x 1.2 x 1.1 cm. Low suspicion for malignancy. Left Lobe: 5.0 x 1.6 x 1.5 cm, volume 6.2 cc. Heterogeneous background echotexture with numerous tiny nodules. Left Lobe Nodules: Upper pole cyst measuring 0.5 x 0.4 cm. Lower pole nodule with rim calcification, measuring 1.1 x 0.8 x 0.8 cm. Low suspicion for malignancy. Isthmus: 0.2 cm AP. Isthmic Nodules: None. LYMPH NODES: No adenopathy demonstrated in the central or lateral compartment. OTHER: None. IMPRESSION: Bilateral low suspicion nodules as above. FNA is recommended for nodule such as these when maximal size is greater than 1.5 cm. No FNA recommended at this time. Management recommendations are based on 2015 [place] [employer] Management Guidelines for Adult Patients with Thyroid Nodules and Differentiated Thyroid Cancer. RADIA
[2020-01-12 12:51] VITALS: BP 152/92
--- NOTE | 2020-01-12 14:42 | Discharge Plan ---
Discharge Plan Problem Reviewed?: Yes Disposition: Home, Self Care Condition: Stable Prescriptions: amLODIPine [Norvasc] 5 mg PO DAILY #15 tablet Aspirin Chewable [[place] Aspirin] 81 mg PO DAILY #15 tablet Atorvastatin [Lipitor] 40 mg PO QPM #15 tablet Diet: Regular Activity Restrictions: Activity as Tolerated Shower Restrictions: No (fall precaution) Instruction Topics: Amlodipine tablets, Cholesterol Control, Atorvastatin tablets, Aspirin ASA chewable tablets, TIA Health Concerns: TIA Plan of Treatment: amlodipine is prescribed for you to control your BP. Baby Aspirin and Lipitor are prescribed for you to prevent of stroke. Your all image studies are unremarkable. Your TIA symptoms were resolved. advise you reduce salt intake to control your BP. Care Goals: stabilization and improvement of your medical conditions. Assessment: discussed with you about the care plan, you understood. Additional Instructions or Follow Up instructions: You may followup your PCP in one week. Should your symptoms return or worsen, you may present ER or call 911 for help. No Smoking: If you smoke, Please STOP! Call for help. Follow-up with: Levi Ludwig MD [Primary Care Provider] -
--- NOTE | 2020-01-12 14:54 | DISCHARGE SUMMARY ---
Discharge Summary Admit Date: 01/11/20 Discharge Date: 01/12/20 Discharging Provider: Jaylan Bryson Primary Care Provider: Dr. Ludwig Condition at Discharge: Stable Discharge Disposition: 01 Home, Self Care Discharge Facility Name: home - DIAGNOSES Admission Diagnoses: (1) TIA (transient ischemic attack) (2) HTN (hypertension) (3) Hyperlipidemia (4) CKD (chronic kidney disease) Discharge Diagnoses with Status of Each Condition: (1) TIA (transient ischemic attack) resolved. pt's inability to speak was resolved. pt has no more any focal neurological deficits. pt's all images study including MRI, CT, CTA of head, CTA of neck, ECHO are unremarkable. pt's home meds PRN of Aspirin is switched to daily baby aspirin as the schedule, change pt's home statin to Lipitor 40mg daily. (2) HTN (hypertension) stable, pt is prescribed new bp meds Norvasc 5 mg daily, continue home meds Lisinopril (3) Hyperlipidemia stable (4) CKD (chronic kidney disease) improved. advise pt keep hydration at home. - HPI History of Present Illness: refer from Dr. Key's HPI on 01/11/2020 as the following 78-year-old white male whose stroke risk factors include male sex, hypertension, hyperlipidemia. 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 He has no history of atrial fibrillation or valvular heart disease. He carries a Weiser risk score of 17%. He had a treadmill test on 05/2009 that was negative. He now presents with 30 minutes of inability to speak. He states that he could read, understand what people were saying to him, but could not form the words to speak back. In the emergency room he was mildly hypertensive at 174/92. Afebrile, normal sinus rhythm on EKG. Negative neurological examination and that there were no focal deficits. Cranial nerves were normal. CT of the head was negative. He is now placed in observation to complete work-up for a TIA. - HOSPITAL COURSE Hospital Course: pt was admitted for TIA, inability to speak for 30 min. pt had all TIA work up. pt's all images study including MRI, CT, CTA of head, CTA of neck, ECHO are unremarkable. after treatment, pt has no more any focal neurological deficits. pt's home meds PRN of Aspirin is switched to daily baby aspirin as the schedule, change pt's home statin to Lipitor 40mg daily. The detail hospital course is as the following (1) TIA (transient ischemic attack) resolved. pt's inability to speak was resolved. pt has no more any focal neurological deficits. pt's all images study including MRI, CT, CTA of head, CTA of neck, ECHO are unremarkable. pt's home meds PRN of Aspirin is switched to daily baby aspirin as the schedule, change pt's home statin to Lipitor 40mg daily. (2) HTN (hypertension) stable, pt is prescribed new bp meds Norvasc 5 mg daily, continue home meds Lisinopril (3) Hyperlipidemia stable (4) CKD (chronic kidney disease) improved. advise pt keep hydration at home. - ALLERGIES Allergies/Adverse Reactions: Allergies Allergy/AdvReac Type Severity Reaction Status Date / Time latex Allergy Rash Verified 10/22/13 14:17 - MEDICATIONS Home Medications: Ambulatory Orders Medication Instructions Recorded Confirmed Ibuprofen [Advil] 200 mg PO PRN PRN 10/22/13 01/11/20 Omeprazole [Prilosec] 40 mg PO QAM 10/22/13 01/11/20 Lisinopril [Zestril] 20 mg PO DAILY 01/11/20 01/11/20 Tamsulosin [Flomax] 0.4 mg PO DAILY 01/11/20 01/11/20 Aspirin Chewable [[facility] [place]ayson 81 mg PO DAILY #15 tablet 01/12/20 Aspirin] Atorvastatin [Lipitor] 40 mg PO QPM #15 tablet 01/12/20 amLODIPine [Norvasc] 5 mg PO DAILY #15 tablet 01/12/20 - PHYSICAL EXAM AT DISCHARGE General Appearance: positive: No acute distress, Alert. negative: Lethargic Eyes Bilateral: positive: Normal inspection, PERRL, EOMI, No lid inflammation ENT: positive: ENT inspection nml, Pharynx nml, No signs of dehydration. negative: Purulent nasal drainage Neck: positive: Nml inspection, Thyroid nml, No JVD, Trachea midline. negative: Thyromegaly, Lymphadenopathy (R), Lymphadenopathy (L), Stiff neck, Tracheal deviation Respiratory: positive: Chest non-tender, No respiratory distress, Breath sounds nml. negative: Wheezes, Rales, Rhonchi Cardiovascular: positive: Regular rate & rhythm, No murmur, No gallop. negative: Irregularly irregular, Extrasystoles, Tachycardia, Bradycardia, JVD present, Systolic murmur, Diastolic murmur Peripheral Pulses: positive: 2+ Abdomen: positive: Non-tender, No organomegaly, Nml bowel sounds, No distention. negative: Tenderness, Guarding, Rebound Back: positive: Nml inspection. negative: CVA tenderness (R), CVA tenderness (L) Skin: positive: Color nml, No rash, Warm, Dry. negative: Cyanosis, Diaphoresis, Pallor, Skin rash Extremities: positive: Non-tender, Full ROM, Nml appearance. negative: Calf tenderness, Da's sign/cords Neurologic/Psychiatric: positive: Oriented x3, Motor nml, Sensation nml, Mood/affect nml. negative: Weakness, Sensory loss, Facial droop, Slurred/abnml speech, Depressed mood/affect - LABS Result Diagrams: 01/12/20 05:06 01/12/20 05:06 - FOLLOW UP Follow Up: amlodipine is prescribed for you to control your BP. Baby Aspirin and Lipitor are prescribed for you to prevent of stroke. Your all image studies are unremarkable. Your TIA symptoms were resolved. advise you reduce salt intake to control your BP. You may followup your PCP in one week. Should your symptoms return or worsen, you may present ER or call 911 for help. - TIME SPENT Time Spent in Discharge (Minutes): 40
[2020-01-12] MEDS ORDERED: TAMSULOSIN 0.4 MG CAPSULE PO SCH (21:00)
== END 2020-01-12 15:25 | disposition home or self-care (01) ==
LOC: ED 12:00 → MS2 14:55
PROVIDERS: ADMIT Specialist; ATTEND Nurse Practitioner Gerontology
DX: G45.9 Transient cerebral ischemic attack, unspecified (principal); I12.9 Hypertensive chronic kidney disease with stage 1 through stage 4 chronic kidney disease, or unspecified chronic kidney disease; N18.3 Chronic kidney disease, stage 3 (moderate); E78.5 Hyperlipidemia, unspecified; K21.9 Gastro-esophageal reflux disease without esophagitis; N40.1 Benign prostatic hyperplasia with lower urinary tract symptoms; N39.41 Urge incontinence; R33.8 Other retention of urine; R35.0 Frequency of micturition; R35.1 Nocturia; Z87.891 Personal history of nicotine dependence
CPT/HCPCS: 36415; 70496; 70498; 70551; 71045; 76536; 80048; 80053; 80061; 81003; 83690; 85025; 93005; 93306; 96374; 99285; A9270; G0378; Q9967; 70450; 81001; 83721; 87086

== ENCOUNTER 2020-05-09 09:50 | Outpatient (CLI) | payer MEDICARE ==
--- NOTE | 2020-05-09 13:49 | Ultrasound Report ---
Reason: SCROTAL MASS Procedure Date: 05/09/2020 Accession Number: [id number] / [id number] Procedure: US - Testicle CPT Code: Final Report FULL RESULT: PROCEDURE: Testicle INDICATIONS: SCROTAL MASS TECHNIQUE: Real-time scanning was performed of the scrotum and testicles, with image documentation. Color and pulse Doppler interrogation was performed of both testicles. COMPARISON: Prior similar ultrasound 12/18/2019 reviewed, which had shown asymmetric epididymal cysts with internal debris, caliber the overall area of abnormality up to 3.2 cm on the right and 2.2 cm on the left. FINDINGS: Right: Testicle is normal in size at 2.6 x 3.4 x 3.9 cm, and homogenous in echotexture except for presence of several small intratesticular cysts as was previously the case, measuring between 3 and 4 mm. Epididymis is not seen as a discrete normal structure, with the multicystic abnormality of the right epididymis now measuring up to 3.7 x 4.5 x 5.2 cm. Low-level internal echoes in several of the cystic components. No hydrocele or varicoceles. Overlying scrotal skin is normal in thickness. Left: Testicle is normal in size at 2.5 x 2.8 x 4.5 cm, and homogeneous in echotexture. Epididymis is again seen to be abnormal, with a cystic conglomeration overall measuring up to 5.9 x 4.5 x 10.0 cm containing low level internal echoes, similar to the prior study. No hydrocele or varicoceles. Overlying scrotal skin is normal in thickness. Doppler: Color and pulse Doppler demonstrate normal and symmetric arterial flow in both testicles. IMPRESSION: Multiple bilateral cystic structures involving the epididymis bilaterally, likely representing small and moderate sized spermatoceles, and minimally complex epididymal cysts bilaterally. No significant ion exchange operator time. Reviewed by: Lenny Jones MD on 05/09/2020 1:48 PM PDT Approved by: Lenny Jones MD on 05/09/2020 1:48 PM PDT Station ID: [id number]
== END 2020-05-09 09:51 | disposition home or self-care (01) ==
LOC: DI 09:50
PROVIDERS: ATTEND Urology
DX: N50.3 Cyst of epididymis (principal); N50.89 Other specified disorders of the male genital organs
CPT/HCPCS: 76870